=== PATIENT | female | born 1930 | race Caucasian/White ===

== ENCOUNTER 2018-11-28 21:31 | Observation (INO) | payer MEDICARE ==
--- NOTE | 2018-11-28 21:48 | Emergency Department Record ---
History of Present Illness - General Chief Complaint: Fall Injury Stated Complaint: FALL Time Seen by Provider: 11/28/18 21:40 Source: Patient, EMS Mode of Arrival: EMS Limitations: No limitations - History of Present Illness Initial Comments: 88 yo female presents to ED via EMS for evaluation following a mechanical fall while attempting to take her boots off at home. Patient denies syncope, chest pain, or LOC. Patient reports that she fell injuring the posterior aspect of the right hip as well as her head. Patient denies the use of anticoagulation mediations. Patient reports that she was unable to stand or weight bear of the right following her fall. MD Complaint: Fall Onset/Timin -: Minutes(s) When Fall Occurred: Just prior to arrival Fall Witnessed: Yes, by family Place Fall Occurred: Home Loss of Consciousness: None Prolonged Down Time?: No Symptoms Prior to Fall: None Location: Head, Pelvis Severity: Moderate Quality: Aching - Elliot Coma Scale Eye Response: (4) Open spontaneously Motor Response: (6) Obeys commands Verbal Response: (5) Oriented [place] Total: 15 - Related Data Home Medications Medication Instructions Recorded Confirmed Last Taken Memantine HCl 10 mg PO DAILY 11/28/18 11/28/18 Unknown Sertraline HCl [Zoloft] 25 mg PO DAILY 11/28/18 11/28/18 Unknown Allergies Allergy/AdvReac Type Severity Reaction Status Date / Time NO KNOWN DRUG ALLERGY Allergy HYPERSENSIT Uncoded 05/12/16 18:31 IVITY Review of Systems Constitutional: Denies: Chills, Fever, Malaise, Night sweats Eyes: Denies: Eye discharge, Eye pain ENT: Denies: Congestion, Ear pain, Epistaxis Cardiovascular: Denies: Chest pain, Dyspnea on exertion Endocrine: Denies: Fatigue, Heat or cold intolerance Gastrointestinal: Denies: Abdominal pain, Nausea, Vomiting Genitourinary: Denies: Incontinence, Retention Musculoskeletal: Reports: Arthralgia. Denies: Back pain Skin: Denies: Bruising, Change in color Neurological: Denies: Abnormal gait, Confusion, Headache, Seizure Psychiatric: Denies: Anxiety Hematological/Lymphatic: Denies: Anemia, Blood Clots Past Medical History - SOCIAL HISTORY Smoking Status: Never smoker Drug Use: None - RESPIRATORY Hx Respiratory Disorders: No - CARDIOVASCULAR Hx Cardio Disorders: No - NEURO Hx Neuro Disorders: Yes Hx CVA: Yes Hx Dementia: Yes Hx Headaches: Yes (occass) Comment:: pt currently being evaluated for alzheimers and possibel hx of stroke - GI Hx GI Disorders: No - Hx Genitourinary Disorders: Yes Hx UTI: Yes (currently on bactrim) - ENDOCRINE Hx Endocrine Disorders: Yes Hx Thyroid Disease: Yes - MUSCULOSKELETAL Hx Musculoskeletal Disorders: Yes Hx Arthritis: Yes - PSYCH Hx Psych Problems: No - HEMATOLOGY/ONCOLOGY Hx Hematology/Oncology Disorders: No Family Medical History Family Hx Comment (NOT TO BE USED IN PLACE OF ITEMS BELOW): pt adopted Physical Exam - General General Appearance: Alert, Oriented x3, Cooperative, Mild distress Limitations: No limitations - Head Head exam: Atraumatic, Normocephalic, Normal inspection Head exam detail: negative: Abrasion, Contusion, Rhodes's sign, General tenderness, Hematoma, Laceration - Eye Eye exam: Normal appearance. negative: Conjunctival injection, Periorbital swelling, Periorbital tenderness, Scleral icterus - ENT Ear exam: negative: Auricular hematoma, Auricular trauma Nasal Exam: negative: Active bleeding, Discharge, Dried blood, Foreign body Mouth exam: negative: Drooling, Laceration, Muffled voice, Tongue elevation - Neck Neck exam: Other (Cervical collar in place) - Respiratory Respiratory exam: Normal lung sounds bilaterally. negative: Rales, Respiratory distress, Rhonchi, Stridor - Cardiovascular Cardiovascular Exam: Regular rate, Normal rhythm, Normal heart sounds Peripheral Pulses: 3+: Dorsalis Pedis (R), Dorsalis Pedis (L) - GI/Abdominal GI/Abdominal exam: Soft. negative: Rebound, Rigid, Tenderness - Rectal Rectal exam: Deferred - exam: Deferred - Extremities Extremities exam: Tenderness (TTP to the posterio right hip on examination, no shortening or external rotation present, strong DPP present.). negative: Calf tenderness, Pedal edema - Back Back exam: Denies: CVA tenderness (R), CVA tenderness (L) - Neurological Neurological exam: Alert, Oriented X3 - Psychiatric Psychiatric exam: Normal affect, Normal mood - Skin Skin exam: Normal color. negative: Abrasion Type of lesion: negative: abrasion Course - Reevaluation(s) Reevaluation #1: 11/28/18 22:48 Patient is back from CT imaging, awaiting review. Patient reports that her lower extremity pain is improved. Reevaluation #2: 11/28/18 23:03 CT Brain: 3 cm area of low density left frontal lobe 2 cm area of low density left temporal lobe c/w old infarcts No new area of traumatic injury. CT Cervical Spine: Large posterior bony ridge at C5 causing moderate impression on jennifer cervical cord Osteophyte formation in the region of the C5 neural foramina bilaterally CT Abdomen/Pelvis: 9x5 cm hematoma to the right gluteal pratima No fracture identified 11/28/18 23:10 Patient's cervical spine was cleared following review of the patient's imaging study. Patient and her family members were updated on her chronic C5 CT finding and that she will likely need neurosurgery evaluation as an outpatient. Laboratory studies were reviewed and are grossly unremarkable for an acute process, Hgb stable. Will admit for serial Hgb and PT/OT evaluation. Reevaluation #3: 11/29/18 06:56 Case was discussed with Melania Walters NP, will accept admission at this time. Medical Decision Making - Lab Data Result diagrams: 11/29/18 06:00 11/28/18 22:00 Disposition Disposition: Admit Clinical Impression: Traumatic hematoma of buttock Qualifiers: Encounter type: initial encounter Qualified Code(s): S30.0XXA - Contusion of lower back and pelvis, initial encounter Fall from standing Qualifiers: Encounter type: initial encounter Qualified Code(s): W19.XXXA - Unspecified fall, initial encounter Disposition: Still a Patient at [facility] Decision to Admit: Admit from ER Decision to Admit Date: 11/28/18 Decision to Admit Time: 23:05 Condition: (2) Stable Time of Disposition: 23:05 Quality - Quality Measures Quality Measures: N/A - Blood Pressure Screening Does Patient Have Any of the Following: Active Dx of HTN Blood Pressure Classification: Hypertensive Reading Systolic Measurement: 169 Diastolic Measurement: 60 Screening for High Blood Pressure: Patient Exclusion, Hx of HTN [[id number]]
[2018-11-28] MEDS ORDERED: ONDANSETRON HCL IV 4 MG/2 ML VIAL IVP ONE (21:49)
[2018-11-28] MEDS ORDERED: MORPHINE SULFATE 10 MG/ML VIAL IVP ONE (21:49)
[2018-11-28] MEDS ORDERED: 0.9 % SODIUM CHLORIDE 1000ML 500 ML IV SCH (22:00)
[2018-11-28] MEDS ORDERED: DIAZEPAM (VALIUM) 5MG/ML **10ML VIAL IVP ONE (22:47)
[2018-11-28 23:07] LABS: BASO % 1.1 % (0-6); EOS % 3.6 % (0-6); GRAN % 62.8 % (47-80); HEMATOCRIT 38.6 % (35.0-47.0); HEMOGLOBIN 12.4 gm/dl (11.6-16.0); LYMPH % 23.6 % (16-45); MEAN CELL VOLUME 101.3 fl (81-97); MEAN CORPUSCULAR HEMOGLOBIN 32.5 pg (27-33); MEAN CORPUSCULAR HGB CONC 32.1 g/dl (32-36); MEAN PLATELET VOLUME 11.3 fl (7.4-10.4); MONO % 8.9 % (0-9); PLATELET COUNT 168 K/uL (130-400); RED BLOOD COUNT 3.81 M/uL (3.80-5.40); RED CELL DISTRIBUTION WIDTH 13.4 % (11.5-14.5); WHITE BLOOD COUNT W/O DIFF 9.9 K/uL (4.2-12.2)
[2018-11-28 23:15] LABS: BILIRUBIN,TOTAL < 0.20 mg/dL (0.2-1.0); BLOOD UREA NITROGEN 19 mg/dL (8-23); CREATININE 0.6 mg/dL (0.5-0.9); EST GLOMERULAR FILTRATION RATE > 60 mL/min
[2018-11-28 23:17] LABS: INR 1.1; PROTHROMBIN TIME (PATIENT) 10.9 SECONDS (9.5-12.1)
[2018-11-28 23:18] LABS: GLUCOSE,RANDOM 102 mg/dL (74-109)
[2018-11-28 23:20] LABS: ALB/GLOB RATIO 1.2 (1.1-1.8); ALBUMIN 3.8 g/dL (4.0-5.0); ALT/SGPT 11 U/L (<33); AST/SGOT 16 U/L (10.0-35.0)
[2018-11-28 23:21] LABS: ALKALINE PHOSPHATASE 69 U/L (35-104)
[2018-11-29] MEDS ORDERED: IBUPROFEN 600 MG TABLET PO PRN (00:45)
[2018-11-29] MEDS ORDERED: ONDANSETRON HCL IV 4 MG/2 ML VIAL IVP PRN (00:45)
[2018-11-29] MEDS ORDERED: MORPHINE SULFATE 10 MG/ML VIAL IVP SCH (00:45)
[2018-11-29] MEDS ORDERED: MORPHINE SULFATE 10 MG/ML VIAL IVP PRN (01:45)
[2018-11-29 06:23] LABS: BASO % 1.1 % (0-6); EOS % 3.7 % (0-6); GRAN % 56.1 % (47-80); HEMATOCRIT 33.2 % (35.0-47.0); HEMOGLOBIN 10.5 gm/dl (11.6-16.0); LYMPH % 28.9 % (16-45); MEAN CELL VOLUME 101.8 fl (81-97); MEAN CORPUSCULAR HEMOGLOBIN 32.2 pg (27-33); MEAN CORPUSCULAR HGB CONC 31.6 g/dl (32-36); MEAN PLATELET VOLUME 11.2 fl (7.4-10.4); MONO % 10.2 % (0-9); PLATELET COUNT 198 K/uL (130-400); RED BLOOD COUNT 3.26 M/uL (3.80-5.40); RED CELL DISTRIBUTION WIDTH 13.1 % (11.5-14.5); WHITE BLOOD COUNT W/O DIFF 8.4 K/uL (4.2-12.2)
[2018-11-29] MEDS: LEVOTHYROXINE SODIUM 100 MCG TABLET PO SCH (07:12)
[2018-11-29] MEDS: SERTRALINE HCL 50 MG TABLET PO SCH (09:15)
[2018-11-29] MEDS: NAPROXEN 250 MG TABLET PO SCH ×2 (09:15→21:52)
[2018-11-29] MEDS: DONEPEZIL HCL 5 MG TABLET PO SCH (09:16)
[2018-11-29] MEDS: MEMANTINE HCL 10 MG TABLET PO SCH (09:16)
[2018-11-29] MEDS ORDERED: ACETAMINOPHEN 500 MG TABLET PO PRN (09:46)
--- NOTE | 2018-11-29 12:43 | History & Physical ---
History of Present Illness - Date of Service Date of Service for History & Physical: 11/29/18 - History of Present Illness Admitting Diagnosis: Fall from standing. Right gluteal hematoma History of Present Illness: Nakita Garcia is an 88 y.o. F who was brought to the [facility] ED by EMS for evaluation following a fall while attempting to take her boots off at home. Reported that she fell into a cabinet with her head and broke the door. Also injured her right hip and was unable to stand or bear weight on her right leg after the fall. Denied having any SOB, chest pain, change in LOC. PMHx includes Dementia, questionable hx of CVA, Hx of UTI, thyroid disease, arthritis. ED course CT Brain: 3cm area of low density in left frontal lob, 2cm area of density in left temporal lob with old infarcts, no new injury CT Cervical spine: Large posterior bony ridge at C5 causing moderate compression on the cervical cord CT ABD/Pelvis: 9x5cm hematoma to right gluteal pratima, No fracture identified 11/29/18 1315: Lying in bed with family at bedside. Alert and oriented to person and situation. Reports that her right hip/leg hurts and rates it as "moderate". Would like to work with PT as pt is very weak and will be returning home with elderly spouse and they both have cognition issues. Reports that bowels are working well. No nausea or headaches. Family reports that pt still drives a car but only goes to 3 places in town but knows not to go any other place or she will get lost. Family also states that they will be making arrangements in the home so that pt and her spouse only have to use the first floor of their home. Travel Screening - Travel/Exposure Within Last 30 Days Have you traveled within the last 30 days?: No - Travel/Exposure Within Last Year Have you traveled outside the [place] in the last year?: No - Additonal Travel Details Have you been exposed to anyone with a communicable illness?: No - Travel Symptoms Symptom Screening: None Review of Systems Reviewed: No additional complaints except as noted below Constitutional: Denies: Chills, Fever, Malaise, Night sweats Eyes: Denies: Eye discharge, Eye pain ENT: Denies: Congestion, Ear pain, Epistaxis Cardiovascular: Denies: Chest pain, Dyspnea on exertion Endocrine: Denies: Fatigue, Heat or cold intolerance Gastrointestinal: Denies: Abdominal pain, Nausea, Vomiting Genitourinary: Denies: Incontinence, Retention Musculoskeletal: Reports: Arthralgia (right shoulder, chronic), Myalgia (right leg). Denies: Back pain Skin: Denies: Bruising, Change in color Neurological: Denies: Abnormal gait, Confusion, Headache, Seizure Psychiatric: Denies: Anxiety Hematological/Lymphatic: Denies: Anemia, Blood Clots Past Medical History - SOCIAL HISTORY Smoking Status: Never smoker Drug Use: None - RESPIRATORY Hx Respiratory Disorders: No - CARDIOVASCULAR Hx Cardio Disorders: No - NEURO Hx Neuro Disorders: Yes Hx CVA: Yes Hx Dementia: Yes Hx Headaches: Yes (occass) Comment:: pt currently being evaluated for alzheimers and possibel hx of stroke - GI Hx GI Disorders: No - Hx Genitourinary Disorders: Yes Hx UTI: Yes (currently on bactrim) - ENDOCRINE Hx Endocrine Disorders: Yes Hx Thyroid Disease: Yes - MUSCULOSKELETAL Hx Musculoskeletal Disorders: Yes Hx Arthritis: Yes - PSYCH Hx Psych Problems: No - HEMATOLOGY/ONCOLOGY Hx Hematology/Oncology Disorders: No Family Medical History Family Hx Comment (NOT TO BE USED IN PLACE OF ITEMS BELOW): pt adopted H&P Meds/Allergies - Allergies Allergies: Allergies Allergy/AdvReac Type Severity Reaction Status Date / Time NO KNOWN DRUG ALLERGY Allergy HYPERSENSIT Uncoded 05/12/16 18:31 IVITY - Home Medications Home Medications Medication Instructions Recorded Confirmed Last Taken Memantine HCl 10 mg PO DAILY 11/28/18 11/28/18 Unknown Sertraline HCl [Zoloft] 25 mg PO DAILY 11/28/18 11/28/18 Unknown - Active Medications Active Medications: Current Medications Acetaminophen (Tylenol 500mg Tab) 1,000 mg PO Q8HR PRN PRN Reason: PAIN - MILD (1-4) Donepezil HCl (Aricept) 10 mg PO DAILY [facility] Last Admin: 11/29/18 09:16 Dose: 10 mg Levothyroxine Sodium (Synthroid) 100 mcg PO DAILYTHY [facility] Last Admin: 11/29/18 07:12 Dose: 100 mcg Memantine (Namenda) 10 mg PO DAILY [facility] Last Admin: 11/29/18 09:16 Dose: 10 mg Morphine Sulfate (Morphine Sulfate) 4 mg IVP Q4H PRN PRN Reason: PAIN - MOD TO SEVERE (5-10) Naproxen (Naprosyn) 500 mg PO BID [facility] Last Admin: 11/29/18 09:15 Dose: 500 mg Ondansetron HCl (Zofran) 4 mg IVP Q6H PRN PRN Reason: NAUSEA Sertraline HCl (Zoloft) 25 mg PO DAILY [facility] Last Admin: 11/29/18 09:15 Dose: 25 mg Simvastatin (Zocor) 20 mg PO QHS [facility] Physical Exam - Vital Signs Vital Signs: Vital Signs - Last 24 Hrs Temp Pulse Pulse Resp BP BP Pulse Ox 11/29/18 08:17 18 11/29/18 08:00 97.5 F L 63 16 118/46 95 11/29/18 00:50 97.6 F 70 16 119/56 97 11/28/18 23:50 98.4 F 70 18 169/60 96 11/28/18 23:24 66 18 129/60 96 11/28/18 22:45 68 18 156/96 95 11/28/18 21:35 98.4 F 70 16 147/78 98 - General General Appearance: Alert, Oriented x3, Cooperative, No acute distress Limitations: No limitations - Head Head exam: Atraumatic, Normocephalic, Normal inspection Head exam detail: negative: Abrasion, Contusion, Rhodes's sign, General tenderness, Hematoma, Laceration - Eye Eye exam: Normal appearance. negative: Conjunctival injection, Periorbital swelling, Periorbital tenderness, Scleral icterus - ENT Ear exam: negative: Auricular hematoma, Auricular trauma Nasal Exam: negative: Active bleeding, Discharge, Dried blood, Foreign body Mouth exam: negative: Drooling, Laceration, Muffled voice, Tongue elevation - Neck Neck exam: Other (Cervical collar in place) - Respiratory Respiratory exam: Normal lung sounds bilaterally. negative: Rales, Respiratory distress, Rhonchi, Stridor - Cardiovascular Cardiovascular Exam: Regular rate, Normal rhythm, Normal heart sounds Peripheral Pulses: 3+: Dorsalis Pedis (R), Dorsalis Pedis (L) - GI/Abdominal GI/Abdominal exam: Soft. negative: Rebound, Rigid, Tenderness - Rectal Rectal exam: Deferred - exam: Deferred - Extremities Extremities exam: Full ROM, Normal capillary refill, Tenderness (TTP to the posterior right hip on examination, no shortening or external rotation present, strong DPP present.). negative: Calf tenderness, Pedal edema - Back Back exam: Denies: CVA tenderness (R), CVA tenderness (L) - Neurological Neurological exam: Alert - Psychiatric Psychiatric exam: Normal affect, Normal mood - Skin Skin exam: Normal color. negative: Abrasion Type of lesion: negative: abrasion Results - Labs Result Diagrams: 11/29/18 06:00 11/28/18 22:00 Labs Last 24 Hours: Laboratory Results - last 24 hr 11/28/18 11/28/18 11/28/18 22:00 22:00 22:00 WBC 9.9 RBC 3.81 Hgb 12.4 Hct 38.6 MCV 101.3 H MCH 32.5 MCHC 32.1 RDW 13.4 Plt Count 168 MPV 11.3 H Gran % 62.8 Lymphocytes % 23.6 Monocytes % 8.9 Eosinophils % 3.6 Basophils % 1.1 PT 10.9 INR 1.1 Sodium 142 Potassium 4.5 Chloride 104 Carbon Dioxide 28.0 Anion Gap 10.0 BUN 19 Creatinine 0.6 Estimated GFR > 60 Random Glucose 102 Calcium 9.1 Total Bilirubin < 0.20 L AST 16 ALT 11 Alkaline Phosphatase 69 Total Protein 7.0 Albumin 3.8 L Globulin 3.2 Albumin/Globulin Ratio 1.2 11/29/18 06:00 WBC 8.4 RBC 3.26 L Hgb 10.5 L Hct 33.2 L MCV 101.8 H MCH 32.2 MCHC 31.6 L RDW 13.1 Plt Count 198 MPV 11.2 H Gran % 56.1 Lymphocytes % 28.9 Monocytes % 10.2 H Eosinophils % 3.7 Basophils % 1.1 PT INR Sodium Potassium Chloride Carbon Dioxide Anion Gap BUN Creatinine Estimated GFR Random Glucose Calcium Total Bilirubin AST ALT Alkaline Phosphatase Total Protein Albumin Globulin Albumin/Globulin Ratio VTE H&P Assessment - Risk for VTE Risk for VTE: Yes Risk Level: High Risk Assessment Date: 11/29/18 Risk Assessment Time: 13:00 VTE Orders Placed or Will Be Placed: Yes Plan - Detailed Diagnosis and Plan (1) Fall from standing Current Visit: Yes Status: Acute Qualifiers: Encounter type: initial encounter Qualified Code(s): W19.XXXA - Unspecified fall, initial encounter Base Code: W19.XXXA - UNSPECIFIED FALL, INITIAL ENCOUNTER Comment: 11/29/18 -CT Brain: no new area of traumatic injury -CT Cervical Spine: body ridge at C5 causing compression on cervical cord -CT abd/pelvis: 9x5 hematoma to gluteus pratima -Discuss C5 finding with pt and family, no neuro deficits. -Recommended f/u as outpatient with Neurosurgeon for evaluation -PT/OT eval ordered (2) Traumatic hematoma of buttock Current Visit: Yes Status: Acute Qualifiers: Encounter type: initial encounter Qualified Code(s): S30.0XXA - Contusion of lower back and pelvis, initial encounter Base Code: S30.0XXA - CONTUSION OF LOWER BACK AND PELVIS, INITIAL ENCOUNTER Comment: 11/29/18: -9x5cm hematoma to right gluteous pratima per abd/pelvis CT -Hgb dropped to 10.5 from 12 -Ambulating to bathroom, able to bear weight -PT/OT evaluation -CBC to be drawn tomorrow (3) Full code status Current Visit: Yes Status: Acute Base Code: Z78.9 - OTHER SPECIFIED HEALTH STATUS Comment: 11/29/18: -Full code this admission (4) DVT prophylaxis Current Visit: Yes Status: Acute Base Code: [id number] - Comment: 11/29/18: -High Risk d/t age -SCD placed, no anticoagulation d/t risk of falls and current hematoma
[2018-11-29] MEDS ORDERED: SIMVASTATIN 20 MG TABLET PO SCH (22:00)
[2018-11-30 06:32] LABS: EOS % 2.7 % (0-6); GRAN % 50.9 % (47-80); HEMATOCRIT 31.2 % (35.0-47.0); HEMOGLOBIN 9.8 gm/dl (11.6-16.0); LYMPH % 35.9 % (16-45); MEAN CELL VOLUME 101.6 fl (81-97); MEAN CORPUSCULAR HEMOGLOBIN 31.9 pg (27-33); MEAN CORPUSCULAR HGB CONC 31.4 g/dl (32-36); MONO % 9.5 % (0-9); PLATELET COUNT 190 K/uL (130-400); RED BLOOD COUNT 3.07 M/uL (3.80-5.40); RED CELL DISTRIBUTION WIDTH 13.1 % (11.5-14.5); WHITE BLOOD COUNT W/O DIFF 7.9 K/uL (4.2-12.2)
--- NOTE | 2018-11-30 07:22 | CT SCAN REPORT ---
EXAM: CT SCAN OF THE HEAD HISTORY: PATIENT HAS HISTORY OF FALL. TECHNIQUE: Serial axial CT scan of the head was performed at 2.5 mm intervals from the base of the skull to the apex without the use of intravenous contrast. Comparison: MRI of the brain dated 11/20/14 is provided. FINDINGS: The ventricles, cisterns, and sulci appear within normal limits for size, shape, and attenuation for the patient's given age. There is no mass or mass effect. Old infarct involving the left frontal lobe and left temporal lobe are identified. Moderate to extensive periventricular and subcortical white matter. Chronic small vessel ischemic changes are identified. There is no CT evidence of a new intra or extraaxial fluid collection to suggest bleeding. Basal ganglia calcifications are again identified. Old infarct involving the right cerebellum is also unchanged. Bone windows demonstrate no CT evidence of a fracture or dislocation of the skull. The paranasal sinuses are unremarkable. IMPRESSION: OLD INFARCTS INVOLVING THE LEFT FRONTAL AND LEFT TEMPORAL LOBE ARE NOTED DISCUSSED ABOVE. MODERATE TO EXTENSIVE PERIVENTRICULAR AND SUBCORTICAL WHITE MATTER CHRONIC SMALL VESSEL ISCHEMIC CHANGES ARE IDENTIFIED WITHOUT CT EVIDENCE OF AN ACUTE INTRACRANIAL PROCESS. JOB NUMBER: [id number] [facility]
[2018-11-30] MEDS: LEVOTHYROXINE SODIUM 100 MCG TABLET PO SCH (07:29)
--- NOTE | 2018-11-30 07:29 | CT SCAN REPORT ---
EXAM: CT SCAN OF THE CERVICAL SPINE HISTORY: PATIENT HAS A HISTORY OF FALL. TECHNIQUE: Serial axial CT scan of the cervical spine was performed at 2.5 mm intervals from the base of the skull to the thoracic inlet without the use of intravenous contrast. Sagittal and coronal reconstructions are provided. Comparison: MRI of the cervical spine dated 11/20/14 is provided. FINDINGS: The vertebral body height is within normal limits. There is fusion of the posterior aspect of the C3 and C4 vertebral bodies. There is complete fusion of the C5 and C6 vertebral bodies. This finding is likely developmental. There is 2 mm anterolisthesis of the C4 vertebral body with respect to the C5 vertebral body. This finding is unchanged with respect to the prior MRI. Significant facet arthropathy is noted throughout the cervical spine. Moderate to significant disk space height loss and end plate sclerosis is noted throughout the cervical spine. There is no CT evidence of an acute fracture or dislocation of the cervical spine. The prevertebral soft tissue and parapharyngeal fat are unremarkable. The visualized parotid, submandibular, and thyroid gland are unremarkable. There is no CT evidence of cervical lymphadenopathy. Lung windows demonstrate the visualized airways to be unremarkable. 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 JOB NUMBER: [id number] [facility]
--- NOTE | 2018-11-30 07:37 | CT SCAN REPORT ---
EXAM: CT SCAN OF THE PELVIS HISTORY: PATIENT HAS A HISTORY OF FALL. TECHNIQUE: Serial axial CT scan of the pelvis was performed at 2.5 mm intervals from the iliac crest to the pubic symphysis without the use of intravenous or oral contrast. Comparison: X-ray of the lumbar spine dated 01/01/10, x-ray of the bilateral hips and pelvis dated 01/01/10, MRI of the lumbar spine dated 08/16/01 are provided. FINDINGS: Bone windows demonstrate no CT evidence of a fracture or dislocation of the visualized osseous structures of the pelvis or bilateral hips. Degenerative changes of the lumbar spine are identified. Of note is that there is a curvilinear sharply marginated osseous structure identified posterior to the proximal right femoral metadiaphysis measuring 5.6 mm. This finding likely represents enthesophytes if there is no significant overlying soft tissue swelling. A similar enthesophyte was identified over the posterior aspect of the right ischial tuberosity. Within the right gluteus pratima muscle, there is an approximately 9.4 cm x 4.7 cm hematoma. The urinary bladder is unremarkable. The uterus is not visualized. The visualized bowel gas pattern is nonspecific and nonobstructive. IMPRESSION: RIGHT GLUTEAL HEMATOMA IS IDENTIFIED WITHOUT CT EVIDENCE OF AN ACUTE FRACTURE OR DISLOCATION OF THE VISUALIZED OSSEOUS STRUCTURES OF THE PELVIS. JOB NUMBER: [id number] [facility]
[2018-11-30] MEDS: SERTRALINE HCL 50 MG TABLET PO SCH (09:35)
[2018-11-30] MEDS: DONEPEZIL HCL 5 MG TABLET PO SCH (09:36)
[2018-11-30] MEDS: MEMANTINE HCL 10 MG TABLET PO SCH (09:36)
[2018-11-30] MEDS: NAPROXEN 250 MG TABLET PO SCH (09:36)
--- NOTE | 2018-11-30 10:48 | Rehab Evaluation ---
Patient Information - Patient Information Diagnosis: COPD exacerbation, Hypoxia Ordered Treatment: PT Evaluate and Treat Status: Initial Evaluation Past Medical/Surgical Hx: PAST MEDICAL/SURGICAL HISTORY Past Surgical History hyst, thumb sx mult injections PMH - Respiratory Hx Respiratory Disorders No PMH - Cardiovascular Hx Cardiovascular Disorders No PMH - Neuro Hx Neurological Disorders Yes Hx Cerebrovascular Accident Yes Hx Dementia Yes Hx Headaches Yes: occass Comment: pt currently being evaluated for alzheimers and possibel hx of stroke PMH - GI Hx Gastrointestinal Disorders No PMH - Hx Genitourinary Disorders Yes Patient No Hx Urinary Tract Infection Yes: currently on bactrim PMH - Endocrine Hx Endocrine Disorders Yes Hx Thyroid Disease Yes Hx of IDDM No PMH - Musculoskeletal Hx Musculoskeletal Disorders Yes Hx Arthritis Yes PMH - Psych Hx Psychiatric Problems No PMH - Hematology/Oncology Hx Hematology/Oncology No Disorders Premorbid Status: Detail (The patient was prior to admission independent with ambulation without device per her report and completing all ADL's and housework , although she did admit her daughter assisted with waxer tender at time.) Social History: Detail (The patient lives in a 2 story home with spouse with 2 steps and one railing at the enterance. The patient's bedroom and bathroom are on the same floor. The bathroom was equipped with tub/shower combination with tub stool and no grab bars. Patient stood to shower. The patient's toilet is standard with no grab bars present. The patient has no equipment of her own.) Precautions: [place], Fall - Time With Patient Total Time Spent With Patient (Min): 30 Treatment Procedures: Detail (Initial Evaluation, gait training.) Subjective Information - Subjective Information Per Patient (The patient had complaints of R buttock pain level 5-6 at the highest (since fall) using 0-10 pain scale.) Objective Data - Mental Status Patient Orientation: Oriented x3 (The patient was impulsive at times ( with ambulation and moving ).) - Visual Perception Appears within normal limits for therapeutic activities - ROM Within normal limits - Strength/Tone Not within normal limits (The patient's R LE strength is generally 4+to 5/5. The patient's R LE strength was ankle musculature 4+/5, knee extensors 3/5 ( pain with knee extension), knee flexors 4-/5, hip abductors, adductors 4-/5 , hip flexors 3/5( pain with hip flexion.) - Bed Mobility Independent (Independent with supine to and from sit transfer.) - Transfers Independent (Independent sit to and from stand transfer.) - Balance Balance Sitting: Good Balance Standing: Fair (Increased postural sway was noted with posteral balance reaction and with Romberg postion. The patient stood with a wide base of support.) - Gait Detail (The patient ambulated without device a distance of 25 feet with occasional stagger steps and CG. The patient ambulated 110 feet plus with standard cane with supervision and occasional verbal cues for proper technique.) Therapy Assessment - Therapy Assessment Detail (The patient exhibited decreased balance in standing and decreased R LE strength secondary to pain in R buttock region. Recommend use of cane with ambulation, however the patient was reluctant to use a device. Home PT recommended for assessment of safety in the home environment and balance exercises.) Problem List - Problem List Physical Therapy Problem List: Detail (1) Decreased Balance 2) R buttock region pain 3) Impaired ambulation due to R buttock pain and decreased balance.) Goals - Goals Physical Therapy Goals: 1) Assess the patient's balance using objective balance test. 2) The patient will be independent with all transfers including tub transfer. 3) The patient will ambulate independently with use of appropriate assistive device community distances. Prognosis - Prognosis Good Plan - Plan Physical Therapy Plan: PT once a M-F a day for balance exercises, gait training , transfer training.
--- NOTE | 2018-11-30 10:58 | Rehab Evaluation ---
Patient Information - Patient Information Diagnosis: fall from standing, right gluteal hematoma Ordered Treatment: OT Evaluate and Treat Status: Initial Evaluation Surgery: No Past Medical/Surgical Hx: PAST MEDICAL/SURGICAL HISTORY Past Surgical History hyst, thumb sx mult injections PMH - Respiratory Hx Respiratory Disorders No PMH - Cardiovascular Hx Cardiovascular Disorders No PMH - Neuro Hx Neurological Disorders Yes Hx Cerebrovascular Accident Yes Hx Dementia Yes Hx Headaches Yes: occass Comment: pt currently being evaluated for alzheimers and possibel hx of stroke PMH - GI Hx Gastrointestinal Disorders No PMH - Hx Genitourinary Disorders Yes Patient No Hx Urinary Tract Infection Yes: currently on bactrim PMH - Endocrine Hx Endocrine Disorders Yes Hx Thyroid Disease Yes Hx of IDDM No PMH - Musculoskeletal Hx Musculoskeletal Disorders Yes Hx Arthritis Yes PMH - Psych Hx Psychiatric Problems No PMH - Hematology/Oncology Hx Hematology/Oncology No Disorders Premorbid Status: Detail (Pt lives with spouse in a 2 story house, her bedroom and bathroom are on the main level. She has 2 steps and 1 railing at the garage entrance. She has a tub/shower combination with a seat but no grab bars , she usually stands to shower. She has a standard height toilet, no grab bars. She reports being Ind with home mgmt, meal prep and laundry although she reports her daughter assists with IADLs. She ambulated without any assistive device.) Precautions: [place], Fall - Time With Patient Total Time Spent With Patient (Min): 35 Treatment Procedures: Detail (OT eval low complexity) Subjective Information - Subjective Information Per Patient Objective Data - Pain Pain Present: Yes (5-6/10 right buttock pain) - Mental Status Patient Orientation: Oriented x3 - Visual Perception Appears within normal limits for therapeutic activities - ROM Not within normal limits ([place] UE AROM WNL with exception of right shoulder flexion which is limited due to premorbid injury.) - Strength/Tone Not within normal limits ([place] UE strength 4/5 with exception of right shoulder flexion which is 3-/5) - Coordination Appears within normal limits for therapeutic activities - Bed Mobility Independent (Ind with supine to sit) - Transfers Independent (Ind with sit to stand from EOB) - Balance Balance Sitting: Good Balance Standing: Good - Sensation Intact - Gait Detail (Pt ambulated in hallway with straight cane and SBA) - ADL's/IADL's Detail (Pt refusing to participate in ADL tasks, she feels this will not be any trouble after discharge.) Therapy Assessment - Therapy Assessment Detail (Pt refusing to participate in ADL tasks. Recommend home OT to assess safety and Ind.) Problem List - Problem List Occupational Therapy Problem List: Detail (1. Need to assess safety and Ind with self cares.) Goals - Goals Occupational Therapy Goals: 1. Pt will be safe and Ind with self care tasks. Prognosis - Prognosis Good Plan - Plan Occupational Therapy Plan: Recommend home OT assessment to ensure safety and Ind with ADLs/IADLs.
--- NOTE | 2018-11-30 12:15 | Discharge Summary ---
Providers Discharge Summary Date: 11/30/18 Date of admission: 11/28/18 23:51 Attending physician: DIVINA ZAMBRANO Primary care physician: CHACORTA SAUL D.O. Physical Exam - Vital Signs Vital Signs: Vital Signs - Last 24 Hrs Temp Pulse Resp BP Pulse Ox 11/30/18 08:00 98.1 F 62 16 137/53 97 11/30/18 07:42 18 11/29/18 22:00 98.6 F 77 16 134/61 97 11/29/18 16:00 97.9 F 77 16 117/49 96 - General General Appearance: Alert, Oriented x3, Cooperative, No acute distress Limitations: No limitations - Head Head exam: Atraumatic, Normocephalic, Normal inspection Head exam detail: negative: Abrasion, Contusion, Rhodes's sign, General tenderness, Hematoma, Laceration - Eye Eye exam: Normal appearance. negative: Conjunctival injection, Periorbital swelling, Periorbital tenderness, Scleral icterus - ENT Ear exam: negative: Auricular hematoma, Auricular trauma Nasal Exam: negative: Active bleeding, Discharge, Dried blood, Foreign body Mouth exam: negative: Drooling, Laceration, Muffled voice, Tongue elevation - Neck Neck exam: Other (Cervical collar in place) - Respiratory Respiratory exam: Normal lung sounds bilaterally. negative: Rales, Respiratory distress, Rhonchi, Stridor - Cardiovascular Cardiovascular Exam: Regular rate, Normal rhythm, Normal heart sounds Peripheral Pulses: 3+: Dorsalis Pedis (R), Dorsalis Pedis (L) - GI/Abdominal GI/Abdominal exam: Soft. negative: Rebound, Rigid, Tenderness - Rectal Rectal exam: Deferred - exam: Deferred - Extremities Extremities exam: Full ROM, Normal capillary refill, Tenderness (TTP to the posterior right hip on examination, no shortening or external rotation present, strong DPP present.). negative: Calf tenderness, Pedal edema - Back Back exam: Denies: CVA tenderness (R), CVA tenderness (L) - Neurological Neurological exam: Alert - Psychiatric Psychiatric exam: Normal affect, Normal mood - Skin Skin exam: Normal color. negative: Abrasion Type of lesion: negative: abrasion Hospitalization - Hospitalization Admission Diagnosis: Fall from standing. Right gluteal hematoma - Problem List/Discharge Diagnosis (1) Fall from standing Status: Acute Discharge Diagnosis: Encounter type: initial encounter Qualified Code(s): W19.XXXA - Unspecified fall, initial encounter Base Code: W19.XXXA - UNSPECIFIED FALL, INITIAL ENCOUNTER Comment: 11/30/18 -CT Brain: no new area of traumatic injury -CT Cervical Spine: body ridge at C5 causing compression on cervical cord -CT abd/pelvis: 9x5 hematoma to gluteus pratima -Discuss C5 finding with pt and family, no neuro deficits. -Recommended f/u as outpatient with Neurosurgeon for evaluation -Home PT/OT eval ordered (2) Traumatic hematoma of buttock Status: Acute Discharge Diagnosis: Encounter type: initial encounter Qualified Code(s): S30.0XXA - Contusion of lower back and pelvis, initial encounter Base Code: S30.0XXA - CONTUSION OF LOWER BACK AND PELVIS, INITIAL ENCOUNTER Comment: 11/29/18: -9x5cm hematoma to right gluteous pratima per abd/pelvis CT -Hgb dropped to 9.4 -Ordered Iron Supplement 325mg PO daily x 30 days -F/u with PCP -Home PT/OT ordered (3) Full code status Status: Acute Base Code: Z78.9 - OTHER SPECIFIED HEALTH STATUS Comment: 12/01: -Full code this admission (4) DVT prophylaxis Status: Acute Base Code: [id number] - Comment: 12/01/18: -High Risk d/t age -SCD placed, no anticoagulation d/t risk of falls and current hematoma - Hospitalization Course Disposition: Home Health Service Hospital Course: Nakita Garcia is an 88 y.o. F who was brought to the [facility] ED by EMS for evaluation following a fall while attempting to take her boots off at home. Reported that she fell into a cabinet with her head and broke the door. Also injured her right hip and was unable to stand or bear weight on her right leg after the fall. Denied having any SOB, chest pain, change in LOC. PMHx includes Dementia, questionable hx of CVA, Hx of UTI, thyroid disease, arthritis. ED course CT Brain: 3cm area of low density in left frontal lob, 2cm area of density in left temporal lob with old infarcts, no new injury CT Cervical spine: Large posterior bony ridge at C5 causing moderate compression on the cervical cord CT ABD/Pelvis: 9x5cm hematoma to right gluteal pratima, No fracture identified 3/17/19 1315: Lying in bed with family at bedside. Alert and oriented to person and situation. Reports that her right hip/leg hurts and rates it as "moderate". Would like to work with PT as pt is very weak and will be returning home with elderly spouse and they both have cognition issues. Reports that bowels are working well. No nausea or headaches. Family reports that pt still drives a car but only goes to 3 places in town but knows not to go any other place or she will get lost. Family also states that they will be making arrangements in the home so that pt and her spouse only have to use the first floor of their home. 11/30/18 1100: Reports that she is ready to go home. Is aware that her family has made arrangements to her home so she will not have to climb stairs anymore. Would like to get PT/OT. Pain is controlled with Tylenol. Procedures: Imaging and X-Rays 11/28/18 21:41 CERVICAL SPINE WO CONTRAST [CT] Stat HEAD WO CONTRAST [CT] Stat PELVIS WO CONTRAST [CT] Stat Abnormal Labs: Abnormal Lab Results 11/28/18 11/28/18 11/29/18 Range/Units 22:00 22:00 06:00 RBC 3.26 L (3.80-5.40) M/uL Hgb 10.5 L (11.6-16.0) gm/dl Hct 33.2 L (35.0-47.0) % MCV 101.3 H 101.8 H (81-97) fl MCHC 31.6 L (32-36) g/dl MPV 11.3 H 11.2 H (7.4-10.4) fl Monocytes % 10.2 H (0-9) % Total Bilirubin < 0.20 L (0.2-1.0) mg/dL Albumin 3.8 L (4.0-5.0) g/dL 11/30/18 Range/Units 06:25 RBC 3.07 L (3.80-5.40) M/uL Hgb 9.8 L (11.6-16.0) gm/dl Hct 31.2 L (35.0-47.0) % MCV 101.6 H (81-97) fl MCHC 31.4 L (32-36) g/dl MPV 11.0 H (7.4-10.4) fl Monocytes % 9.5 H (0-9) % Total Bilirubin (0.2-1.0) mg/dL Albumin (4.0-5.0) g/dL Condition at Discharge: (2) Stable Discharge Medications - Discharge Medications Prescriptions: Ferrous Sulfate [Iron] 325 mg PO DAILY #30 tablet Home Medications: Ambulatory Orders Donepezil HCl [Aricept] 10 mg PO DAILY 05/12/16 [Last Taken 1 Day Ago ~05/11/16] Levothyroxine Sodium [Synthroid] 100 mcg PO DAILY 05/12/16 [Last Taken 1 Day Ago ~05/11/16] Nabumetone 1,000 mg PO BID 05/12/16 [Last Taken 1 Day Ago ~05/11/16] Pravastatin Sodium [Pravachol] 40 mg PO DAILY 05/12/16 [Last Taken 1 Day Ago ~] Memantine HCl 10 mg PO DAILY 11/28/18 [Last Taken Unknown] Sertraline HCl [Zoloft] 25 mg PO DAILY 11/28/18 [Last Taken Unknown] Acetaminophen [Tylenol 500Mg Tab] 1,000 mg PO Q8HR PRN tablet 11/30/18 [Last Taken Unknown] Ferrous Sulfate [Iron] 325 mg PO DAILY #30 tablet 11/30/18 [Last Taken Unknown] Discharge Plan - Discharge Instructions Activity at Discharge: Resume Usual Activities As Tolerated Diet at Discharge: Advance to Usual Diet Instructions: Fall Prevention for Older Adults (DC) Additional Instructions: Follow up with Primary Care Provider in 1-2 weeks Start taking an iron supplement daily for [address] you are seen by your Primary Care Provider as you have hit your head and have pain/weakness in your right leg Quality Measures - Quality Measures Quality Measures: Advance Directives, Documentation of Current Medications in Medical Record, Elder Maltreatment Screen and Follow-Up Plan, Screening for High Blood Pressure and F/U Documented - Current Medications Quality Measure: Measure #130: Documentation of Current Medications Documentation of Current Medications: <Current Medications Documented/Reviewed> [G8427] - Blood Pressure Screening Quality Measure: Screening for High Blood Pressure and Follow-Up Documented Does Patient Have Any of the Following: Active Dx of HTN Blood Pressure Classification: Hypertensive Reading Systolic Measurement: 169 Diastolic Measurement: 60 Screening for High Blood Pressure: Patient Exclusion, Hx of HTN [G9744] - Advance Directives Quality Measure: Measure #47: Care Plan Advance Directives Established: No Advance Directives Information Provided To Patient: No Advance Directives on File: Yes Power of Inventory Assistant: Yes Power of Inventory Assistant Name: Stephanie Ng-daughter Advance Care Planning: <Care Plan/Decision Maker Documented; Discussed & Documented> [[id number]] - Elder Abuse Suspicion Index Screening: Elder Abuse Suspicion Index Screening Rely on people for bathing, dressing, shopping, banking, etc: Yes Prevented from getting food, clothes, medication, etc: No Made to feel shamed or threatened by someone: No Forced to sign papers or use money against will: No Feel afraid, touched in ways not wanted or hurt physically: No Poor eye contact, withdrawn, malnourished, cuts or bruises: No Screening Result: Negative result EASI Reference Information: Matilde ASHLEY, Pebbles C, Fam D, Karolyn Almeida.Development and validation of a tool to assist physicians identification of elder abuse: The Elder Abuse Suspicion Index (EASI ). Journal of Elder Abuse and Neglect, 2008; 20 (3): 276-300. - Elder Maltreatment Screen Quality Measures: Elder Maltreatment Screen and Follow-Up Plan Elder Maltreatment Screen: <Negative, No Follow-Up Plan Required> [G8758]
[2018-11-30] MEDS ORDERED: FERROUS SULFATE 325 MG TAB PO SCH (12:30)
== END 2018-11-30 13:00 | disposition home health service (06) ==
LOC: ER 21:31 → MEDSURG 23:51
PROVIDERS: ADMIT Internal Medicine; ATTEND Internal Medicine
DX: S30.0XXA Contusion of lower back and pelvis, initial encounter (principal); W18.39XA Other fall on same level, initial encounter; F03.90 Unspecified dementia, unspecified severity, without behavioral disturbance, psychotic disturbance, mood disturbance, and anxiety; E03.9 Hypothyroidism, unspecified; M19.90 Unspecified osteoarthritis, unspecified site; Z86.73 Personal history of transient ischemic attack (TIA), and cerebral infarction without residual deficits
CPT/HCPCS: 70450; 72125; 72192; 80053; 85025; 85027; 85610; 96374; 96375; 99217; 99220; 99285; J2270; J2405; J3360; J7030

== ENCOUNTER 2019-02-28 15:03 | Emergency (ER) | payer MEDICARE ==
--- NOTE | 2019-02-28 15:21 | Emergency Department Record ---
History of Present Illness - General Chief complaint: Head Injury Stated complaint: FALL Time Seen by Provider: 02/28/19 15:16 Source: Patient, Family Mode of Arrival: Stretcher Limitations: No limitations - History of Present Illness Initial comments: The patient is here due to falling at home and cutting her head. She fell backwards and hit the back of the head on the corner of the wall. There was no reported LOC and the patient did not complain of any head ache or neck pain after. 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 Family denies any recent illnesses. The patient is not on blood thinners. MD Complaint: Head injury Onset/Timin -: Hour(s) Location: Face Loss of Consciousness: No Place: Home Provoking factors: None known - Related Data Previous Rx's Medication Instructions Recorded Acetaminophen [Tylenol 500Mg Tab] 1,000 mg PO Q8HR PRN tablet 11/30/18 Ferrous Sulfate [Iron] 325 mg PO DAILY #30 tablet 11/30/18 Allergies/Adverse reactions: Allergies Allergy/AdvReac Type Severity Reaction Status Date / Time No Known Drug Allergies Allergy Verified 02/28/19 15:29 Travel Screening - Travel/Exposure Within Last 30 Days Have you traveled within the last 30 days?: No - Travel/Exposure Within Last Year Have you traveled outside the [place] in the last year?: No - Additonal Travel Details Have you been exposed to anyone with a communicable illness?: No - Travel Symptoms Symptom Screening: None Review of Systems Constitutional: Denies: Chills, Fever Eyes: Denies: Eye discharge ENT: Denies: Congestion Respiratory: Denies: Cough, Dyspnea Past Medical History - SOCIAL HISTORY Smoking Status: Never smoker Alcohol Use: None Drug Use: None - RESPIRATORY Hx Respiratory Disorders: No - CARDIOVASCULAR Hx Cardio Disorders: No - NEURO Hx Neuro Disorders: Yes Hx CVA: Yes Hx Dementia: Yes Hx Headaches: Yes (occass) Comment:: pt currently being evaluated for alzheimers and possibel hx of stroke - GI Hx GI Disorders: No - Hx Genitourinary Disorders: Yes Hx UTI: Yes (currently on bactrim) - ENDOCRINE Hx Endocrine Disorders: Yes Hx Thyroid Disease: Yes - MUSCULOSKELETAL Hx Musculoskeletal Disorders: Yes Hx Arthritis: Yes - PSYCH Hx Psych Problems: No - HEMATOLOGY/ONCOLOGY Hx Hematology/Oncology Disorders: No Family Medical History Any Significant Family History?: No Family Hx Comment (NOT TO BE USED IN PLACE OF ITEMS BELOW): pt adopted Physical Exam - General General Appearance: Alert, Oriented x3, Cooperative, No acute distress - Head Head exam: Normocephalic. negative: Atraumatic, Normal inspection (There is a 2 cm lac to the L occiput. There is mild swelling but no bony step off.) - Eye Eye exam: Normal appearance, PERRL - ENT Throat exam: Normal inspection. negative: Tonsillar erythema, Tonsillar exudate - Neck Neck exam: Normal inspection, Full ROM. negative: Tenderness - Respiratory Respiratory exam: Normal lung sounds bilaterally. negative: Respiratory d istress - Cardiovascular Cardiovascular Exam: Regular rate, Normal rhythm, Normal heart sounds - GI/Abdominal GI/Abdominal exam: Soft, Normal bowel sounds. negative: Tenderness - Extremities Extremities exam: Normal inspection, Full ROM, Normal capillary refill. negative: Tenderness - Back Back exam: Reports: Normal inspection. Denies: Vertebral tenderness - Neurological Neurological exam: Alert, Oriented X3. negative: Altered, Motor sensory deficit - Skin Skin exam: negative: Rash Course Vital Signs 02/28/19 15:09 Temperature 98.0 F Pulse Rate 64 Respiratory 16 Rate Blood Pressure 159/81 Pulse Ox 99 - Reevaluation(s) Reevaluation #1: Procedure note: The scalp lac was anesth. with 2 cc's Lido 1% with Epi. The wound was cleansed with betadine and Hibiclens. The wound was then closed with 4 joby. There were no complications. 02/28/19 16:38 Reevaluation #2: The patient is doing well at this time. She does have a mild LIN. I did discuss the head CT results which showed a small intraparenchymal and subarachnoid bleed and the need for transfer to the Trauma Team at [facility]. The patient and family do agree to the plan. I also did discuss the case with Dr.'s Mcclure and Lawson at [facility] and they do accept the patient in an ER to ER transfer. 02/28/19 17:13 Medical Decision Making - Data Complexity MDM Data: Labs Ordered and/or Reviewed, X-Ray Ordered and/or Reviewed, EKG Ordered and/or Reviewed - Lab Data Result diagrams: 02/28/19 16:00 02/28/19 16:00 - EKG Data -: EKG Interpreted by Me EKG: No Acute Changes (NSR at 61, RBBB. Neg for ischemic changes.) - Radiology Data Radiology results: Report reviewed (Head CT: small area of intraparenchymal AND subarachnoid hemmorhage in the L parietal area. Cervical CT: Neg.) Disposition Disposition: Transfer Clinical Impression: Intraparenchymal hematoma of brain Qualifiers: Encounter type: initial encounter Laterality: left Loss of consciousness presence/duration: without LOC Qualified Code(s): S06.350A - Traumatic hemorrhage of left cerebrum without loss of consciousness, initial encounter Disposition: Acute Care Hospital Transfer Transfer To: [facility] ER Reason For Transfer: Neurosurgery Accepting Physician: Miladis Time Discussed w/Accepting Physician: 17:25 Condition: (2) Stable Forms: Patient Portal Access Time of Disposition: 17:25 Quality - Quality Measures Quality Measures: N/A - Blood Pressure Screening View Details: Yes Does Patient Have Any of the Following: No Blood Pressure Classification: Pre-Hypertensive BP Reading Systolic Measurement: 159 Diastolic Measurement: 81 Screening for High Blood Pressure: < Pre-Hypertensive BP, F/U Documented > [G8950] Pre-Hypertensive Follow-up Interventions: Referral to alternative/primary care provider.
[2019-02-28 16:13] LABS: ABSOLUTE NEUTROPHIL COUNT 5.88; BASO % 0.8 % (0-6); EOS % 2.5 % (0-6); GRAN % 67.4 % (47-80); HEMATOCRIT 39.2 % (35.0-47.0); HEMOGLOBIN 12.8 gm/dl (11.6-16.0); MEAN CELL VOLUME 99.7 fl (81-97); MEAN CORPUSCULAR HEMOGLOBIN 32.6 pg (27-33); MEAN CORPUSCULAR HGB CONC 32.7 g/dl (32-36); MEAN PLATELET VOLUME 11.2 fl (7.4-10.4); MONO % 10.3 % (0-9); PLATELET COUNT 224 K/uL (130-400); RED BLOOD COUNT 3.93 M/uL (3.80-5.40); RED CELL DISTRIBUTION WIDTH 12.6 % (11.5-14.5); WHITE BLOOD COUNT W/O DIFF 8.7 K/uL (4.2-12.2)
[2019-02-28 16:26] LABS: BILIRUBIN,TOTAL < 0.20 mg/dL (0.2-1.0); BLOOD UREA NITROGEN 20 mg/dL (8-23); CREATININE 0.7 mg/dL (0.5-0.9); EST GLOMERULAR FILTRATION RATE > 60 mL/min
[2019-02-28 16:29] LABS: GLUCOSE,RANDOM 91 mg/dL (74-109)
[2019-02-28 16:32] LABS: ALB/GLOB RATIO 1.3 (1.1-1.8); ALKALINE PHOSPHATASE 77 U/L (35-104); ALT/SGPT 9 U/L (<33); AST/SGOT 14 U/L (10.0-35.0)
[2019-02-28] MEDS ORDERED: Diph,Pert(Acell),Tet Vac 0.5 ML SYR IM ONE (17:12)
[2019-02-28] MEDS ORDERED: TRANEXAMIC ACID 1,000 MG in 0.9 % SODIUM CHLORIDE 100ML 100 ML IV ONE (17:16)
[2019-02-28] MEDS ORDERED: TRANEXAMIC ACID 1,000 MG in 0.9 % SODIUM CHLORIDE 500ML 500 ML IV ONE (17:21)
--- NOTE | 2019-03-03 13:00 | CT SCAN REPORT ---
EXAM: HEAD CT WITHOUT CONTRAST HISTORY: TRAUMA, PATIENT FELL ON STAIRS HITTING BACK OF HEAD ON LEFT SIDE. TECHNIQUE: Axial CT scan of the head was performed without IV contrast. Comparison: Head CT 11/28/18. FINDINGS: Please note that although the exam was performed at 3:42 p.m., there was a delay in the images being available on the PACS worklist until about 5:00 p.m. on 02/28/19. There is a small focal hyperdensity high in the left parietal lobe, new from the prior study and likely representing a small parenchymal contusion. There may be a second small focus of either cortical parenchymal contusion or focal subarachnoid hemorrhage further posteriorly in the left parietal region as well. No other convincing areas of acute intracranial hemorrhage identified today. Generalized atrophy with chronic appearing deep white matter changes again noted as before. Old areas of infarction are again seen in the left temporal lobe, left frontal lobe, and probably also in the right cerebellum all present previously. No depressed calvarial fracture evident. There does appear to be some soft tissue swelling in the scalp high in the left parietal region today consistent with a scalp hematoma. Basal ganglia calcification bilaterally again evident. IMPRESSION: 1. APPEARANCE CONSISTENT WITH A COUPLE FOCI OF INTRACRANIAL HEMORRHAGE THAT ARE QUITE SMALL, LOCATED IN THE LEFT PARIETAL REGION, ONE WITHIN THE BRAIN PARENCHYMA AND THE OTHER POSSIBLY A SMALL SUBARACHNOID FOCUS OR IN THE SUPERFICIAL GYRUS NEAR A CORTICAL SULCUS. 2. GENERALIZED ATROPHY WITH CHRONIC APPEARING DEEP WHITE MATTER CHANGES AND OLD AREAS OF INFARCTION IN THE RIGHT CEREBELLUM, LEFT FRONTAL LOBE, AND LEFT TEMPORAL LOBE BEFORE. 3. BASAL GANGLIA CALCIFICATION BILATERALLY BEFORE. 4. REPORT OF THE FINDINGS OF INTRAPARENCHYMAL HEMORRHAGE ON THE LEFT WERE IMMEDIATELY PHONED BY MYSELF TO THE [facility] EMERGENCY DEPARTMENT AT PHONE NUMBER AND DISCUSSED WITH DR. RASHEED AT THE TIME OF DICTATION AT APPROXIMATELY 5:10 P.M. ON 02/28/19. JOB NUMBER: [id number] AND [id number] [facility]
--- NOTE | 2019-03-03 13:11 | CT SCAN REPORT ---
EXAM: CERVICAL SPINE CT WITHOUT CONTRAST HISTORY: PATIENT FELL ON STAIRS HITTING LEFT SIDE OF HEAD ON CONCRETE. TECHNIQUE: Axial CT scan of the entire cervical spine was performed. Please note that the study was performed at 3:45 p.m. as indicated by the time stamp, but was not available on our workstation to read until approximately 5:39 p.m. on 02/28/19. Comparison: Cervical CT dated 11/28/18. Encounter: Initial. FINDINGS: No apical pneumothorax is evident. There is apical pleural thickening bilaterally. No definite fracture of the cervical spine identified. No prevertebral soft tissue swelling is evident. There is advanced degenerative change at multiple levels. This includes prominent spurring at the odontoid-anterior arch of C1 articulation. Fusion of the C5-C6 vertebra, narrowing of the C3-C4 interspace with partial fusion as well, narrowing of the C6-C7 and C7-T1 interspaces. Multilevel facet joint arthropathy. Fusion of multiple facet joints. There is mild anterior subluxation of C4 on C5, C3 on C4, C7 on T1, and T1 on T2. These all appear to be on a degenerative basis related to the extensive facet joint arthropathy. There is a cervical curve convexed to the left as well. There is multilevel foraminal stenosis. IMPRESSION: 1. NO DEFINITE FRACTURE OF THE CERVICAL SPINE IDENTIFIED. 2. EXTENSIVE DEGENERATIVE CHANGES IN THE CERVICAL SPINE NOTED ABOVE. JOB NUMBER: [id number] [facility]TD[facility]
== END 2019-02-28 18:30 | disposition short-term general hospital (02) ==
LOC: ER 15:03
DX: S06.6X0A Traumatic subarachnoid hemorrhage without loss of consciousness, initial encounter (principal); S01.01XA Laceration without foreign body of scalp, initial encounter; W01.198A Fall on same level from slipping, tripping and stumbling with subsequent striking against other object, initial encounter; Y92.009 Unspecified place in unspecified non-institutional (private) residence as the place of occurrence of the external cause; G30.9 Alzheimer's disease, unspecified; F02.80 Dementia in other diseases classified elsewhere, unspecified severity, without behavioral disturbance, psychotic disturbance, mood disturbance, and anxiety
CPT/HCPCS: 12001; 70450; 72125; 80053; 85025; 90715; 93005; 93010; 96365; 96366; 96372; 99285; J7040

== ENCOUNTER 2019-03-09 18:03 | Emergency (ER) | payer MEDICARE ==
--- NOTE | 2019-03-09 18:14 | Emergency Department Record ---
History of Present Illness - General Stated Complaint: staple removal Time Seen by Provider: 03/09/19 18:06 Source: Patient Mode of arrival: Ambulatory Limitations: No limitations - History of Present Illness Initial Comments: 89 yo female presents for a wound check and staple removal. She had 4 joby placed on February 28. No complaints since the injury. No significant headaches, dizziness or new pains. She was transferred to [facility] to Trauma and had an uneventful admission. MD Complaint: Suture/staple removal, Wound re-check -: Days(s) (9) Initial Visit For: Laceration Returns Today for: Staple/stitch removal Symptoms Since Prior Visit: No new symptoms Associated Symptoms: None - Related Data Previous Rx's Medication Instructions Recorded Acetaminophen [Tylenol 500Mg Tab] 1,000 mg PO Q8HR PRN tablet 11/30/18 Ferrous Sulfate [Iron] 325 mg PO DAILY #30 tablet 11/30/18 Allergies Allergy/AdvReac Type Severity Reaction Status Date / Time No Known Drug Allergies Allergy Verified 02/28/19 15:29 Review of Systems Constitutional: Denies: Chills, Fever, Malaise, Weakness Eyes: Denies: Eye discharge ENT: Denies: Congestion, Throat pain Respiratory: Denies: Cough Cardiovascular: Denies: Chest pain, Syncope Endocrine: Denies: Fatigue Gastrointestinal: Denies: Diarrhea, Nausea, Vomiting Musculoskeletal: Denies: Arthralgia, Back pain, Joint swelling, Myalgia Skin: Denies: Bruising, Change in color, Rash Neurological: Denies: Headache, Numbness, Tingling, Weakness Psychiatric: Denies: Anxiety Hematological/Lymphatic: Denies: Easy bleeding, Easy bruising Past Medical History - SOCIAL HISTORY Smoking Status: Never smoker Drug Use: None - RESPIRATORY Hx Respiratory Disorders: No - CARDIOVASCULAR Hx Cardio Disorders: No - NEURO Hx Neuro Disorders: Yes Hx CVA: Yes Hx Dementia: Yes Hx Headaches: Yes (occass) Comment:: pt currently being evaluated for alzheimers and possibel hx of stroke - GI Hx GI Disorders: No - Hx Genitourinary Disorders: Yes Hx UTI: Yes (currently on bactrim) - ENDOCRINE Hx Endocrine Disorders: Yes Hx Thyroid Disease: Yes - MUSCULOSKELETAL Hx Musculoskeletal Disorders: Yes Hx Arthritis: Yes - PSYCH Hx Psych Problems: No - HEMATOLOGY/ONCOLOGY Hx Hematology/Oncology Disorders: No Family Medical History Family Hx Comment (NOT TO BE USED IN PLACE OF ITEMS BELOW): pt adopted Physical Exam - General General Appearance: Alert, Oriented x3, Cooperative, No acute distress Limitations: No limitations - Head Head exam: negative: Atraumatic, Normal inspection Head exam detail: Other (Healing scalp laceration) - Eye Eye exam: Normal appearance - ENT ENT exam: Normal exam Ear exam: Normal external inspection Nasal Exam: Normal inspection Mouth exam: Normal external inspection - Neck Neck exam: Normal inspection - Extremities Extremities exam: Normal inspection - Neurological Neurological exam: Alert, Oriented X3 - Psychiatric Psychiatric exam: Normal affect, Normal mood. negative: Agitated, Anxious - Skin Skin exam: Other (Healing laceration) Course - Reevaluation(s) Reevaluation #1: 03/09/19 18:14 Joby removed without difficulty The patient is doing well without symptoms Disposition Disposition: Discharge Clinical Impression: Removal of staple Disposition: Home, Self-Care Condition: (1) Good Instructions: Stitches Removal (ED) Additional Instructions: Return to the ER if you have any concerns with the healing of the scalp or any other symptoms Time of Disposition: 18:10 Quality - Quality Measures Quality Measures: N/A - Blood Pressure Screening Does Patient Have Any of the Following: No Systolic Measurement: ~ Screening for High Blood Pressure: < Pre-Hypertensive BP, F/U Documented > [G8950] Pre-Hypertensive Follow-up Interventions: Referral to alternative/primary care provider.
== END 2019-03-09 18:22 | disposition home or self-care (01) ==
LOC: ER 18:03
DX: Z48.02 Encounter for removal of sutures (principal)